=== PATIENT | female | born 1955 | race Two or more races ===

== ENCOUNTER 2017-10-27 18:25 | Emergency (ER) | payer MEDICAID, OTHER ==
[~2017-10-27] VITALS: Ht 157.5 cm; Wt 63.6 kg
[2017-10-27] MEDS ORDERED: HYDROcodone/APAP 5/325 TABLET PO ONE (19:30)
[2017-10-27] MEDS ORDERED: HYDROcodone/APAP 5/325 TABLET ONE (20:02)
[2017-10-27 20:06] VITALS: BP 211/86
== END 2017-10-27 20:50 | disposition home or self-care (01) ==
LOC: ED 20:00
DX: S29.012A Strain of muscle and tendon of back wall of thorax, initial encounter (principal); S09.8XXA Other specified injuries of head, initial encounter; I10 Essential (primary) hypertension; W01.198A Fall on same level from slipping, tripping and stumbling with subsequent striking against other object, initial encounter; Y93.89 Activity, other specified; Y92.89 Other specified places as the place of occurrence of the external cause; Y99.8 Other external cause status
CPT/HCPCS: 70450; 72128; 99284